=== PATIENT | male | born 1965 ===

== ENCOUNTER 2018-01-03 20:25 | Emergency (ER) | payer OTHER ==
[~2018-01-03] VITALS: Ht 160 cm; Wt 68.0 kg
[2018-01-03 20:38] VITALS: TEMP 37.2; Ht 160 cm; Wt 68.0 kg
[2018-01-03] MEDS ORDERED: PROPARACAINE HCL 0.5% OP SOLN 15 ML BTL OP STA (21:21)
[2018-01-03] MEDS ORDERED: CIPROFLOXACIN HCL 0.3% OP SOLN 2.5 ML BTL OP STA (22:26)
[2018-01-03] MEDS ORDERED: PERCOCET HOME PACK PO STA (22:35)
--- NOTE | 2018-01-03 22:39 | EMERGENCY ROOM VISIT NOTE ---
ED Visit Note First contact with patient: 20:44 CHIEF COMPLAINT: Foreign body of the right eye HISTORY OF PRESENT ILLNESS: This 52-year-old male patient presents to the emergency department, ambulatory, complaining of pain and foreign body sensation in the right eye. The patient states last Sunday, he was cutting tin , and states he felt a foreign body sensation and believes he got a piece in the eye. He states since that time, he has been experiencing intermittent pain and watery drainage of that eye. 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 He attempted to flush the eye with water, and states the discomfort seemed to go away for a few days. There has been a constant moderate pain and irritation which worsened this morning, redness and tearing in the eye. The patient does report blurry vision. The patient does not wear contacts. The patient rates the pain as 8/10. The patient has not had previous injuries to this eye. Tetanus shot is up to date. REVIEW OF SYSTEMS: A 6 system review of systems was completed with positives and pertinent negatives listed in the HPI. ALLERGIES: None MEDICATIONS: None PMH: None SOCIAL HISTORY: The patient is from [place], [place]. He is currently traveling to a cabin approximately 1 hour from here. He stopped in the emergency department on his way to the cabin. He denies drug, alcohol, tobacco use. PHYSICAL EXAM: Vital Signs: Reviewed Nurse's notes, vital signs stable. Visual acuity 20/100 right, 20/25 left. GENERAL: This is a 52-year-old white male, in no acute distress, but who is uncomfortable from the eye problem. Well- developed well-nourished. EYES: The pupils are equal round and reactive to light and accommodation. EOMs are full and without tenderness. There is watery discharge from the right eye which is injected. There is an obvious metallic foreign body with rust ring visible on the cornea. There is no foreign body visible under the eyelid after lid eversion. Metallic foreign body was seen embedded in the cornea under slit lamp exam. The cornea was clear and no hyphema was seen. Fluorescein uptake was observed with ultraviolet light significant for a corneal abrasion with foreign body localized in the cornea, approximately midline of the pupil. EMERGENCY DEPARTMENT COURSE: I examined the patient. Alcaine 2 drops were placed in the patient's right eye. A slit lamp exam was performed as above. Verbal consent was obtained to perform the procedure. Parts of the metallic foreign body was removed using a cotton swab. Another small piece was removed using a tuberculin needle. A portion remained and was unable to be retrieved. I did consult with Dr. Patricio regarding the foreign body and his opinion on waiting until the patient goes home on Sunday for evaluation. He strongly encouraged evaluation in his office tomorrow to have the object removed and avoid worsening or further infection or ulceration. I did discuss this with the patient. He states he plans on going to the cabin [facility], but will contact Dr. Patricio's office in the morning and drive back if necessary. Ciloxan two drops was placed in the patient's right eye. The patient was given a home pack for Percocet. Discharge instructions reviewed. The patient was discharged home in good condition. I did discuss the case with Dr. Calixto, who was agreeable with the assessment and plan. I attest that I have personally reviewed the patient's current medication list. Patient was found to have normal blood pressure on screening and does not require follow-up. Etiologies such as conjunctivitis, corneal abrasion, uveitis, glaucoma, periorbital cellulitis, orbital cellulitis, abscess, trauma, as well as others were entertained. DIAGNOSIS: Foreign body with subsequent corneal abrasion of the right eye Allergies Coded Allergies: No Known Allergies (Unverified , 01/03/18) Vital Signs Date Time Temp Pulse Resp B/P (MAP) Pulse Ox O2 Delivery O2 Flow Rate FiO2 01/03/18 23:17 78 18 119/78 98 Room Air 01/03/18 22:10 74 18 118/91 97 Room Air 01/03/18 20:38 37.2 81 18 119/76 96 Room Air Medications Administered Medications (Trade) Dose Ordered Sig/Shannan Route Start Time Stop Time Status Last Admin Dose Admin Proparacaine HCl (Alcaine 0.5% Oph Soln) 2 drops NOW STAT OP 01/03/18 21:21 01/03/18 21:22 DC 01/03/18 21:28 2 DROPS Ciprofloxacin HCl (Ciprofloxacin 0.3% Op Soln) 2 drops NOW STAT OP 01/03/18 22:26 01/03/18 22:27 DC 01/03/18 23:18 2 DROPS Oxycodone/ Acetaminophen (Percocet 5/ 325MG Home Pack) 1 homepack UD STAT PO 01/03/18 22:35 01/03/18 22:36 DC 01/03/18 23:18 1 HOMEPACK Departure Information Impression Primary Impression: Corneal foreign body Additional Impression: Corneal abrasion Dispostion Home / Self-Care Condition GOOD Referrals Omar Mendoza CRNP (PCP) Vikas Patricio D.O. Patient Instructions ED Foreign Body [facility], [facility] Additional Instructions You have been treated in the Emergency Department today for your Corneal Abrasion. You have been prescribed Percocet to be used for pain control. This is a narcotic medication. You cannot drive or consume alcohol while on this medicine. This medicine should only be used for pain that cannot be controlled with [id number] pain medicines. You have been prescribed Ciloxan eye drops. This is an antibiotic which will help to prevent an infection from developing in your affected eye. You should use 2 drops in the affected eye every 2 hours while awake for the first 2 days, then every 4 hours for the remaining 5 days. This is a total of a 7-day course for these antibiotic eye drops. For pain control, you can use the following exbo-fdq-[id number] medicines (if >12 yo): Ibuprofen(Motrin, Advil) may be used for fever or pain. Use 600mg every six hours as needed. Take with food. Avoid using more than 2400mg in a 24 hour period. Do not use 2400mg per day for more than three consecutive days without physician direction. Prolonged inappropriate use can lead to stomach upset or ulcers. (AND/OR) Acetaminophen(Tylenol) may be used for fever or pain. Use 1000mg every six hours as needed. Avoid using more than 3000mg in a 24 hour period. You should relax in a quiet, dark place for the rest of the day. You should wear sunglasses while outside for the next few days until your eyes are not as sensitive to the light. Contact the [facility] you were provided contact information for tomorrow to establish follow-up and further management and care of the foreign body. The office opens between 8:00 and 8:30 am. Return to the Emergency Department if your current symptoms worsen despite treatment course outlined above, or if you develop any of the following symptoms : intractable pain, visual disturbances, loss of vision, increased redness, swelling, drainage, or if you develop a fever. Problem Qualifiers Primary Impression: Corneal foreign body Encounter type: initial encounter Laterality: right Qualified Codes: T15.01XA - Foreign body in cornea, right eye, initial encounter Additional Impression: Corneal abrasion Encounter type: initial encounter Laterality: right Qualified Codes: S05.01XA - Injury of conjunctiva and corneal abrasion without foreign body, right eye, initial encounter
[2018-01-03 23:17] VITALS: BP 119/78; PULSE 78; O2SAT 98
== END 2018-01-03 23:14 | disposition home or self-care (01) ==
LOC: C.EDB 20:28 → C.EDD 23:14
DX: T15.01XA Foreign body in cornea, right eye, initial encounter (principal); W26.2XXA Contact with edge of stiff paper, initial encounter